=== PATIENT | male | born 1955 | race Hispanic/Latino ===

== ENCOUNTER 2021-05-03 07:31 | Day surgery (SDC) | payer MEDICARE ==
--- NOTE | 2021-05-03 08:36 | Anesthesia Day of Surgery ---
Anesthesia Day of Surgery - Day of Surgery Patient Examined: Yes Patient H&P Reviewed: Yes Patient is NPO: Yes Beta Blockers: Yes (last dose 05/02/21)
--- NOTE | 2021-05-03 08:36 | Anesthesia Consultation ---
Anesthesia Consult and Med Hx Date of service: 05/03/21 - Airway Anesthetic Teeth Evaluation: Good ROM Head & Neck: Adequate Mental/Hyoid Distance: Adequate Mallampati Class: Class III Intubation Access Assessment: Possibly Difficult - Pulmonary Exam CTA: Yes - Cardiac Exam Cardiac Exam: RRR - Pre-Operative Health Status ASA Pre-Surgery Classification: ASA3 Proposed Anesthetic Plan: MAC - Pulmonary Hx Smoking: Yes (former smoker quit 2 months ago (prev <1PPD)) Hx Respiratory Symptoms: No - Cardiovascular System Hx Hypertension: Yes Hx Coronary Artery Disease: Yes (EF 30-35%) Hx Heart Attack/AMI: Yes (2016) Hx Percutaneous Transluminal Coronary Angioplasty (PTCA): Yes (stents) Hx Pacemaker: Yes Hx Internal Defibrillator: Yes - Central Nervous System CVA: Yes (06/2020; no residual deficits) - Endocrine Hx Renal Disease: No Hx Liver Disease: No Hx Insulin Dependent Diabetes: No Hx Non-Insulin Dependent Diabetes: No Hx Hypothyroidism: Yes - Other Systems Hx Obesity: No - Additional Comments Anesthesia Medical History Comments: No hx anesthetic complications. Prior hx LV thrombus on coumadin. Scheduled for VALENTE to evaluate cardiac source for CVA. Hx esophageal stricture s/p dilation.
[2021-05-03 08:49] LABS: Hematocrit 40.4 % (35.5-45.6); Hemoglobin 14.4 gm/dl (11.8-15.2); Mean Corpuscular HGB Conc 36 % (32-34); Mean Corpuscular Volume 98 fl (84-94); Platelet Count 218 K/mm3 (140-440); Red Blood Count 4.12 M/mm3 (3.65-5.03); Red Cell Distribution Width 13.4 % (13.2-15.2)
[2021-05-03 09:00] LABS: INR 2.23 (0.87-1.13); Partial Thromboplastin Time 37.1 Sec. (24.2-36.6)
[2021-05-03] MEDS ORDERED: BENZOCAINE 20% TOP SPRAY 0.5 ML UNIT DOSE MM NR (09:00)
[2021-05-03] MEDS ORDERED: SODIUM CHLORIDE 0.9% 1000 ML 1,000 ML IV SCH (09:00)
[2021-05-03 09:01] LABS: BUN/Creatinine Ratio 18; Blood Urea Nitrogen 16 mg/dL (9-20); Calcium 9.2 mg/dL (8.4-10.2); Hemolysis Index 8
[2021-05-03] MEDS ORDERED: propofoL 200 MG/20 ML VIAL IV ONE ×2 (09:20)
--- NOTE | 2021-05-03 10:12 | Short Stay Summary ---
Short Stay Documentation Date of service: 05/03/21 - History H&P: obtained from office - Allergies and Medications Current Medications: Allergies No Known Allergies Allergy (Verified 04/26/21 04:39) Home Medications Medication Instructions Recorded Confirmed Last Taken Type Aspirin [Adult Low Dose Aspirin EC] 81 mg PO DAILY 02/12/18 05/03/21 05/02/21 History 81 mg Atorvastatin Calcium [Lipitor] 40 mg PO QHS 02/12/18 05/03/21 05/02/21 History 40 mg Carvedilol [Coreg] 3.125 mg PO BID 02/12/18 05/03/21 05/02/21 History 3.125mg Losartan [Cozaar] 25 mg PO DAILY 02/12/18 05/03/21 05/02/21 History 25 mg Warfarin Sodium [Coumadin] 5 mg PO HS 02/12/18 05/03/21 05/02/21 History 5 mg Ezetimibe [Zetia] 10 mg PO DAILY 05/03/21 05/03/21 05/02/21 History 10 mg Levothyroxine [Synthroid] 100 mcg PO DAILY 05/03/21 05/03/21 05/02/21 History 100 mcg Spironolactone [Aldactone] 25 mg PO DAILY 05/03/21 05/03/21 05/02/21 History 25 mg Active Medications Sodium Chloride (Nacl 0.9% 1000 Ml) 1,000 mls @ 42 mls/hr IV DIRECT BHARGAV Last Admin: 05/03/21 08:49 Dose: 42 mls/hr - Brief post op/procedure progress note Date of procedure: 05/03/21 Pre-op diagnosis: cva Post-op diagnosis: same Procedure: see tremayne report Anesthesia: MAC Estimated blood loss: none Pathology: none - Disposition Condition at discharge: Good Disposition: 01 HOME / SELF CARE / HOMELESS - Discharge Diagnoses (1) CVA (cerebral vascular accident) Status: Acute Qualifiers: CVA mechanism: stenosis Laterality of affected vessel: unspecified (2) CAD (coronary artery disease) Status: Chronic Qualifiers: Coronary Disease-Associated Artery/Lesion type: [place] artery Associated angina: without angina (3) CHF (congestive heart failure), NYHA class I Status: Chronic Qualifiers: Congestive heart failure type: systolic Congestive heart failure chronicity: chronic Qualified Code(s): I50.22 - Chronic systolic (congestive) heart failure (4) Hyperlipemia, mixed Status: Chronic (5) 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
--- NOTE | 2021-05-03 10:30 | Post Anesthesia Evaluation ---
- Post Anesthesia Evaluation Patient Participated: Yes Airway Patent: Yes Stable Respiratory Function: Yes Nausea/Vomiting: No Temp > 96.8F: Yes Pain Manageable: Yes Adequeate Hydration: Yes Anesthesia Complications: No
[2021-05-03 12:04] VITALS: BP 140/77
--- NOTE | 2021-05-04 10:24 | Electrocardiograph Report ---
[facility] Test Date: 2021-05-03 Test Time: 08:06:58 Pat Name: LETTY YEN Department: Room: Gender: M Etl Database Developer: RODNEY : 1955 Requested By: DARELL GREEN Order Number: [id number] Reading MD: Darell Green Measurements Intervals [place] Rate: 62 P: LA: 206 QRS: 88 QRSD: 118 T: 113 QT: 435 QTc: 441 Interpretive Statements Atrial-paced complexes Nonspecific intraventricular conduction delay Anterolateral infarct, age indeterminate No previous ECG available for comparison Electronically Signed On 05-04-2021 10:24:09 EST by Darell Green
== END 2021-05-03 07:32 | disposition home or self-care (01) ==
LOC: CATHLABREC 07:31
PROVIDERS: ATTEND Internal Medicine
DX: I63.89 Other cerebral infarction (principal); I34.0 Nonrheumatic mitral (valve) insufficiency; I25.10 Atherosclerotic heart disease of native coronary artery without angina pectoris; I11.0 Hypertensive heart disease with heart failure; I50.9 Heart failure, unspecified; E78.2 Mixed hyperlipidemia; K21.9 Gastro-esophageal reflux disease without esophagitis; E03.9 Hypothyroidism, unspecified; Z20.822 Contact with and (suspected) exposure to COVID-19; Z87.891 Personal history of nicotine dependence; Z79.899 Other long term (current) drug therapy; Z79.82 Long term (current) use of aspirin; Z79.01 Long term (current) use of anticoagulants; Z98.890 Other specified postprocedural states
CPT/HCPCS: 36415; 80048; 85027; 85610; 85730; 93312; 93320; 93325; J2704; J7030; U0003; 93005; J7120; Q0162